=== PATIENT | female | born 1960 | race Caucasian/White ===

== ENCOUNTER 2021-11-09 10:11 | Emergency (ER) | payer MEDICAID ==
[~2021-11-09] VITALS: Ht 154.9 cm; Wt 82.0 kg
[2021-11-09 10:26] VITALS: BP 180/90
[2021-11-09 11:33] LABS: BASOPHILS % 0.3 % (0.0-2.0); EOSINOPHILS % 2.1 % (0.0-5.0); HEMATOCRIT. 37.2 % (36.0-48.0); HEMOGLOBIN. 12.7 g/dL (12.0-16.0); LYMPHOCYTES % 34.6 % (20.0-50.0); MEAN CORPUSCULAR HEMOGLOBIN 28.8 pg (28.0-32.0); MEAN CORPUSCULAR VOLUME 84.5 fL (81.0-99.0); MEAN PLATELET VOLUME 8.2 fl (7.4-10.4); MONOCYTES % 5.1 % (2.0-8.0); NEUTROPHILS % 57.9 % (40.0-76.0); PLATELET 237 x1000/uL (130-400); RED BLOOD CELL COUNT 4.41 mill/uL (4.2-5.4)
[2021-11-09 11:40] LABS: CHLORIDE 104 mEq/L (98-107)
[2021-11-09] MEDS ORDERED: CLIN300C12 MT (11:43)
[2021-11-09] MEDS ORDERED: MUPI15CR11 TP (11:43)
== END 2021-11-09 13:07 | disposition home or self-care (01) ==
LOC: ER 10:11
DX: J34.0 Abscess, furuncle and carbuncle of nose (principal); E11.9 Type 2 diabetes mellitus without complications
CPT/HCPCS: 36415; 80048; 85025; 99283